=== PATIENT | female | born 1985 | race Caucasian/White ===

== ENCOUNTER → 2019-09-12 12:26 | Outpatient (CLI) | payer SELFPAY ==
--- NOTE | 2019-09-19 11:25 | EC ---
PATIENT:EDITH ROMO DATE OF SERVICE: 09/12/19 SEX: F MEDICAL RECORD: [id number] DATE OF : [birth year] LOCATION:D. AGE OF PATIENT: 34 ADMISSION DATE: 09/12/19 REFERRING PHYSICIAN: INTERPRETING PHYSICIAN: TANO JEROME MD ECHOCARDIOGRAM REPORT ECHO CHARGES 4 ECHO COMPLETE Date: 09/12/19 CLINICAL DIAGNOSIS: HEART MURMUR ECHOCARDIOGRAPHIC MEASUREMENTS (adult normal given) AC root (d.<3.7cm) 3.7 cm LV Septum d (<1.2 cm> 1.4 cm Valve Excursion 1.4 cm LV Septum (systole) 1.6 cm Left Atria (s.<4.0cm> 3.2 cm LVPW d(<1.2cm) 1.4 cm RV (d.<2.3cm) 3.6 cm LVPW (sytole) 1.6 cm LV diastole(<5.6CM) 4.4 cm MV E-F(>70mm/sec) cm LV systole 3.0 cm LVOT Diameter 2.0 cm MV exc.(>10mm) 1.7 cm Est.ejection fraction (50-75%) % DOPPLER: LVIT cm/sec A 64.0 cm/sec E 73.0 cm/sec LA cm/sec RVSP 17 mmHg LVOT 113 cm/sec AOP1/2T m/s Asc. 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 Grant TAPE# PACS Pericardial Effusion N DATE OF SERVICE: Adequate 2D, color flow imaging, spectral Doppler, and M-Mode Mild LVH. LV internal dimension is normal. Wall motion is normal. EF is greater than or equal to 55%. Aortic valve is tricuspid. No evidence of stenosis by Doppler interrogation. Left atrium is normal at 3.2 cm. Mitral valve shows no prolapse. Trace MR. Right-sided chambers are grossly normal. Trace TR. 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
--- NOTE | 2019-09-19 11:25 | ST ---
PATIENT:EDITH ROMO MEDICAL RECORD: [id number] SEX: F LOCATION:[facility] ORDER #: ADMISSION DATE: 09/12/19 AGE OF PATIENT: 34 REFERRING PHYSICIAN: INTERPRETING PHYSICIAN: TANO JEROME MD DATE OF SERVICE: 09/12/2019 PROCEDURE: Treadmill stress test. Baseline ECG is normal. Exercised for 7 minutes 15 seconds on Lewis protocol. Maximum heart rate 181 beats per minute, greater than 85% max predicted. No ECG change of ischemia. No symptoms of ischemia. Normal blood pressure response to exercise. No arrhythmias noted. Good exercise tolerance for age. TRANSINT:[id number] Voice Confirmation ID: [id number] DOCUMENT ID: [id number] TANO JEROME MD at 1125 CC: [id number] DICTATION DATE: 09/17/1944 CASH APPLICATIONS ASSOCIATE: 09/17/19 1022 DEP CLI 09/12/[address] [facility] [address] [place] [address]
== END | disposition home or self-care (01) ==
LOC: D.US 12:26 → D.HCCECHO 14:00
PROVIDERS: ATTEND Internal Medicine Interventional Cardiology
DX: R09.89 Other specified symptoms and signs involving the circulatory and respiratory systems (principal); R00.0 Tachycardia, unspecified; R01.1 Cardiac murmur, unspecified